=== PATIENT | male | born 1985 | race African-American/Black ===

== ENCOUNTER 2019-06-06 15:01 | Emergency (ER) | payer MEDICAID ==
[~2019-06-06] VITALS: Ht 180.3 cm; Wt 90.0 kg
[2019-06-06] MEDS ORDERED: ACYCLOVIR 400 MG TABLET PO ONE (20:45)
[2019-06-06] MEDS ORDERED: PREDNISONE 20MG TABLET PO ONE (20:45)
[2019-06-06 21:04] LABS: BASOPHILS % 0.7 % (0.0-2.0); HEMATOCRIT. 48.1 % (42.0-52.0); HEMOGLOBIN. 15.8 g/dL (14.0-18.0); LYMPHOCYTES % 28.6 % (20.0-50.0); MEAN CORPUSCULAR HEMOGLOBIN 27.3 pg (28.0-32.0); MEAN PLATELET VOLUME 7.6 fl (7.4-10.4); MONOCYTES % 9.1 % (2.0-8.0); NEUTROPHILS % 56.6 % (40.0-76.0); PLATELET 286 x1000/uL (130-400); RED BLOOD CELL COUNT 5.79 mill/uL (4.7-6.1); RED CELL DISTRIBUTION WIDTH 13.8 % (11.6-14.6)
[2019-06-06 21:12] LABS: CHLORIDE 106 mEq/L (98-107)
[2019-06-06 22:24] VITALS: BP 126/78
== END 2019-06-06 22:27 | disposition home or self-care (01) ==
LOC: ER 15:01
DX: G51.0 Bell's palsy (principal)
CPT/HCPCS: 36415; 70450; 80053; 85025; 99284; J7512